=== PATIENT | male | born 1930 | race Caucasian/White ===

== ENCOUNTER 2020-09-16 07:45 | Observation (INO) | payer MEDICARE, BC ==
[2020-09-16] VITALS (16 sets, daily range): BP systolic 122–159; BP diastolic 65–97
[~2020-09-16] VITALS: Ht 175.3 cm; Wt 77.7 kg
--- NOTE | ~2020-09-16 | H ---
[address] [address] HISTORY AND PHYSICAL Name: JUNIOR Keegan KAT Room: [address] Wanda Ramirez#: [id number] Admission: 09/16/20 Attend Phys: Gunner Erickson MD, Discharge: 09/17/20 Date of : [birth year] Report #: [id number] THIS REPORT FOR: cc: Clive Andrews MD, Michael B. MD ~ [facility],Medical Records Staff Please refer to the History and Physical performed in the physician's office. By: 1457Medical Records Staff [facility] /NAHOMY
[~2020-09-16 07:45] MED LIST: 8 HOUR PAIN RE650 M1 PO; ASPIR 8181 MG PO; ASPIRIN EC81 M1; ASPIRIN EC81 M1 PO; CALCIUM 600 +1 EAC1; CALCIUM 600 +1 EAC1 PO; CARDIZEM CD300 MG; CYCLOBENZAPRINE5 MG PO; DILTIAZEM 24HR300 M2 PO; DILTIAZEM HCL90 MG PO; EFFIENT10 MG PO; ENALAPRIL-HCTZ1 EACH; ENALAPRIL-HCTZ1 EACH PO; FISH OIL 1,001000 M2 PO; FORTEO750 MCG/3 SUBQ; FOSAMAX 70 MG T70 MG PO; FUROSEMIDE 20 M20 MG PO; GABAPENTIN600 M1 PO; HYDROCODONE-APA1 TA1 PO; IMDUR 30 MG TAB30 M1 PO; KEFLEX500 MG PO; KLOR-CON 1010 MEQ PO; LANSOPRAZOLE30 MG PO; LEXAPRO 10 MG T10 M1 PO; MAGOX 400400 MG PO; NIACIN500 MG PO; NITROGLYCERIN0.4 MG; NITROGLYCERIN0.4 MG SUBLING; NORCO 5-325 TA1 EACH PO; PERCOCET 5-3251 EACH PO; PLAVIX 75 MG TA75 M1 PO; PLAVIX 75 MG TA75 MG; PREDNISOLONE 5 M5 M1 PO; PREDNISONE 5 MG5 M1 PO; PREDNISONE PO; PREVACID 30MG C30 M1 PO; PREVACID30 MG PO; SIMCOR 500-201 EACH; SIMCOR 500-201 EACH PO; TOPROL XL50 MG; TOPROL XL50 MG PO; TRAMADOL 50 MG50 MG PO; TYLENOL325 MG PO; VITAMIN D1000 UNI1 PO; ZETIA10 MG PO
[2020-09-16 08:36] LABS: HEMATOCRIT 36.6 % (42.0-52.0); HEMOGLOBIN 11.6 gm/dL (14.0-18.0); MCH 22.5 pg (26.0-34.0); MCHC 31.7 g/dL (28.0-37.0); MCV 70.9 fL (80.0-100.0); MPV 10.3 fl. (7.2-11.1); RBC 5.17 mil/uL (4.50-6.00); RDW-CV 16.8 % (10.5-14.5); WBC 10.1 thou/uL (4.0-11.0)
[2020-09-16 08:38] LABS: APTT 29.3 Seconds (25.0-31.3); INR 1.1; PROTIME 11.2 Seconds (9.20-11.50)
[2020-09-16 08:39] LABS: ALBUMIN 3.3 g/dL (3.4-5.0); ALKALINE PHOSPHATASE 57 U/L (46-116); ANION GAP 11 mmol/L (7-16); BUN 14 mg/dL (7-18); CALCIUM 8.7 mg/dL (8.5-10.1); CHLORIDE 103 mmol/L (98-107); CHOLESTEROL 137 mg/dL (<200); CO2 23 mmol/L (21-32); CREATININE 1.2 mg/dL (0.6-1.3); GLUCOSE 79 mg/dL (70-99); HDL CHOLESTEROL 38 mg/dL (>40); LDL CHOLESTEROL 85 mg/dL (<100); POTASSIUM 3.6 mmol/L (3.5-5.1); SERUM ASSESSMENT Clear; SGOT 17 U/L (15-37); SGPT 17 U/L (30-65); SODIUM 137 mmol/L (136-145); TC:HDL 3.6 Ratio (Not establshd); TOTAL BILIRUBIN 0.8 mg/dL (<0.1-1.0); TRIGLYCERIDE 72 mg/dL (<150); VLDL 14 mg/dL (<40)
[2020-09-16] MEDS ORDERED: NORVASC5 MG PO (12:36)
--- NOTE | 2020-09-16 12:40 | NUR ---
RECIEVED REPORT FROM CHANNING RN IN PACKAGING DESIGNER AT 1129- DX: HEART CATH- PT ARRIVED TO ROOM 210 VIA CART AT 1142, SLIDE TO BED- PT A&O X4, CHILKOOT WITH HEARIGN AIDES NOTED IN PLACE - CONT VA INCONT OF B/B- PT REPORTED TO HAVE URGENCY AT TIMES WITH STRESS INCONT NOTED- PT REPORTED TO HAVE HADN CATH ACCESS RIGHT GROIN WITH 2 STENTS REPORTED TO HAVE BEEN PLACED- RIGHT GROIN SITE C/D/I WITH NO HEMATOMA NOTED- BED REST IN PLACE INDICATED WITH RLE ISTRUCTIONS OF IMMOBILIZATION GIVEN- VSS WITH POST CATH VITALS WITH GROIN CHECKS IN PLACE INDICATED- ABD SOFT/ROUND/NON-TENDER, BS X4 QUADS- LAST BM REPORTED 09/15/20- IV NOTED TO LEFT FA INTACT WITH IVF INFUSSING PRESCRIBED-BLE AND UE EDEMA NOTED- NO OPEN SOARS OR WOUNDS NOTED- PT DENIES ANY C/O PAIN/DISCOMFORT AT THIS TIME- CALL LIGHT AND PERSONAL BELONGINGS WITH IN REACH- HOURLY ROUNDS IN PLACE R/T SAFETY/NEEDS- ALL NEEDS MET AT THIS TIME
--- NOTE | 2020-09-16 15:14 | EKG ---
[place] [address] ELECTROCARDIOGRAM REPORT Name: JUNIOR Keegan KAT Room: [address] M.R.#: [id number] Admission: 09/16/20 Attend Phys: Deion Rhodes Discharge: Date of : [birth year] Date of Service: 09/16/20 1129 Report #: [id number] THIS REPORT FOR: //name// [facility] Test Date: 2020-09-16 Test Time: 11:29:24 Pat Name: JUNIOR KAT Department: Room: [facility] Gender: M Start Up Specialist: : 1930 Requested By: Gunner Erickson Order Number: [id number] Reading MD: Clive Randall Measurements Intervals [place] Rate: 82 P: 61 [place]: 152 QRS: -55 QRSD: 137 T: 41 QT: 447 QTc: 522 Interpretive Statements Sinus rhythm RBBB and LAFB Compared to ECG 09/16/2020 09:08:24 Left anterior fascicular block now present ST (T wave) deviation now present Electronically Signed On 09-16-2020 15:14:15 SURFACE PLATE INSPECTOR by Clive Randall [email or web address] <ELECTRONICALLY SIGNED> By: Clive Randall MD, FACC 09/16/20 1514 1129 1129 Clive Randall MD, FACC /EPI
--- NOTE | 2020-09-16 15:14 | EKG ---
[place] [address] ELECTROCARDIOGRAM REPORT Name: JUNIOR Keegan KAT Room: [address] M.R.#: [id number] Admission: 09/16/20 Attend Phys: Deion Rhodes Discharge: Date of : [birth year] Date of Service: 09/16/20 0908 Report #: [id number] THIS REPORT FOR: //name// [facility] Test Date: 2020-09-16 Test Time: 09:08:24 Pat Name: JUNIOR KAT Department: Room: [facility] Gender: M Electrocardiograph Repairer: : 1930 Requested By: Gunner Erickson Order Number: [id number] Reading MD: Gunner Erickson Measurements Intervals [place] Rate: 75 P: 63 [place]: 148 QRS: -13 QRSD: 146 T: 43 QT: 445 QTc: 498 Interpretive Statements Sinus rhythm Probable left atrial enlargement Right bundle branch block Compared to ECG 12/26/2016 09:26:18 No significant changes Electronically Signed On 09-16-2020 15:13:59 GASTROENTEROLOGY TECHNICIAN by Gunner Erickson [email or web address] <ELECTRONICALLY SIGNED> By: Gunner Erickson MD, [facility] 09/16/20 1513 0908 0908 Gunner Erickson MD, [facility] /EPI
--- NOTE | 2020-09-16 15:29 | CARD ---
[address] [address] CARDIAC CATH REPORT Name: JUNIOR Keegan KAT Room: [address] Wanda Ramirez#: [id number] Admission: 09/16/20 Attend Phys: Gunner Erickson MD, Discharge: Date of : [birth year] Report #: [id number] THIS REPORT FOR: cc: Clive Andrews MD, Michael B. MD ~ Gunner Erickson MD [facility] APPROVED REPORT Study performed: 09/16/2020 09:27:11 Patient Details Patient Status: Out-Patient Room #: The patient is a 89 year-old male Event Personnel Gunner Erickson Retail Wireless Sales Consultant, Tequila Butler RN, Shreya Huggins RTR Monitor, Hector Hyman RTR Scrub Procedures Performed Art Access - R femoral artery Left Heart Cath Coronaries, Bypass Grafts BAO w/Atherectomy Single LAD Hemostasis w/ Angioseal Indication Unstable angina Risk Factors Hypercholesterolemia, Hypertension Previous Procedures/Diagnoses Previous CABGPrevious PCI Admission/Lab Medications/Medications given during procedure Lidocaine Subcut 14 ml, Oxygen Nasal cannula 2 l per min, 0.9% Sodium Chloride IV 75 ml per hr, Angiomax IV 10.5 ml, Angiomax Drip IV 24.9 ml per hr, Aspirin PO 162 mg, Plavix PO 600 mg Procedure Narrative The patient was brought electively to the Cardiac Catheterization Laboratory and was prepped and draped in a sterile manner. The right femoral was infiltrated with 2% Lidocaine subcutaneous anesthesia. A Ledbetter 6 FR sheath was inserted into the right femoral artery. Coronary angiography was performed using coronary diagnostic [address] [address] CARDIAC CATH REPORT Name: SHEYJUNIOR Allison Room: [address] Wanda Ramirez#: [id number] Admission: 09/16/20 Attend Phys: Gunner Erickson MD, Discharge: Date of : [birth year] Report #: [id number] catheters. The right coronary system was accessed and visualized with a Diagnostic 6 Fr JR 4 catheter. The left coronary system was accessed and visualized with a Diagnostic 6 Fr JL 4 catheter. The left ventricle was accessed and visualized with a Diagnostic 6 Fr Pigtail catheter. Left ventricular/Aortic Valve gradient assessed via catheter pullback. Left ventriculogram was performed in WISDOM projection. Pre-demployment femoral angiogram was performed . Closure device was deployed with a Fr Angioseal STS 6Fr. The patient tolerated the procedure well and there were no complications associated with the procedure. There was no hematoma. The SVG to the RCA was accessed and visualized with a Diagnostic 6 Fr JR 4 catheter. The GRIGSBY graft was accessed and visualized with a Diagnostic 6 Fr IM catheter. Intraoperative Conscious Sedation No sedation was given. Case start was 09:49 and case end was 10:54. Fluoro Time: 22.3 minutes Dose: DAP 587393 cGycm2 3094 mGy Contrast Type and Amount: Visipaque 430 ml [place] Artery Percent Stenosis 1. Patent saphenous vein graft to the distal right core artery with multiple areas of aneurysmal dilatation and 40% narrowing throughout the graft 2. Flush filling of a diminutive but patent GRIGSBY graft to the distal LAD Diagnostic Cath Left Main 0% narrowing LAD 75% ostial narrowing followed by 90% mid LAD stenosis with total occlusion of the LAD after takeoff of a prominent diagonal branch Circumflex Nondominant vessel with a widely patent mid to distal circumflex stent; 0% narrowing Right Coronary 100% proximal occlusion Left Ventriculography The left ventricle is normal in size with normal contractility. The left ventricular ejection fraction is estimated to be 65%. Left ventricular wall motion abnormalities are not present. There [place] [address] CARDIAC CATH REPORT Name: JUNIOR SHEY Keegan Room: [address] Wanda Ramirez#: [id number] Admission: 09/16/20 Attend Phys: Gunner Erickson MD, Discharge: Date of : [birth year] Report #: [id number] Hemodynamics The aortic pressure is 148/54 mmHg with a mean of 91 mmHg. The left ventricular pressure is 151/-5 mmHg with a mean of mmHg. The left ventricular end diastolic pressure is 19 mmHg. There was no gradient across the aortic valve upon pullback. PCI Technique Lesion Anticoagulation was achieved with Angiomax Drip. Patient was preloaded with Angiomax IV 10.5 ml. Percutaneous coronary intervention was performed on the mid left anterior descending artery segment. The lesion stenosis prior to intervention was 90% with DIMITRIOS 3 flow. A 6FR XB 3.0 100CM Guide Catheter was used to engage the left ostium. A IG: ProwaterFlex 180CM Interventional Guidewire was used to cross the lesion. BALLOON DILATION A Balloon catheter NC Trek RX 2.25x12 was inserted and inflated up to 14.00atm for 9seconds. Additional Inflation: 16.00atm for 6seconds. Additional Inflation: 12.00atm for 8seconds. A scoring balloon catheter Angiosculpt PTCA 2.0 x10mm was inserted and inflated up to 12 ARSENIO for 13 seconds, 14 ARSENIO for 17 seconds, 15 ARSENIO for 18 seconds, 10 ARSENIO for 14 seconds, and 12 ARSENIO for 14 seconds. STENT DEPLOYMENT A drug-eluting stent Olga RX Stent 2.0X22mm was inserted and inflated up to 10.00atm for 11seconds. Additional Inflation: 12.00atm for 9seconds. POST STENT DEPLOYMENT BALLOON DILATION A Balloon catheter NC Trek RX 2.25x12 was inserted and inflated up to 17.00atm for 11seconds. Additional Inflation: 18.00atm for 7seconds. Additional Inflation: 15.00atm for 8seconds. Final angiography reveals 10 % stenosis with DIMITRIOS 3 flow. PCI Technique Lesion 2 Percutaneous Coronary Intervention was performed on the proximal left anterior descending artery segment. Patient was preloaded with Angiomax IV 10.5 ml. The lesion stenosis prior to intervention was 75% with DIMITRIOS 3 flow. A 6FR XB 3.0 100CM Guide Catheter was used to engage the left ostium. A IG: ProwaterFlex 180CM Interventional Guidewire was used to cross the lesion. Stent Deployment A drug-eluting stent Olga RX Stent 2.25X8mm was [place] [address] CARDIAC CATH REPORT Name: JUNIOR Keegan KAT Room: [address] Wanda DelgadoTere#: [id number] Admission: 09/16/20 Attend Phys: Gunner Erickson MD, Discharge: Date of : [birth year] Report #: [id number] up to 12.00atm for 9seconds. Additional Inflation: 14.00atm for 6seconds. Additional Inflation: 15.00atm for 9seconds. Final angiography reveals 10 % stenosis with DIMITRIOS 3 flow. Conclusion 1. Severe multivessel coronary artery disease characterized by the following: A 75% ostial with 90% proximal LAD stenosis with total occlusion of the LAD after the takeoff of a prominent diagonal branch B nondominant circumflex with a widely patent mid to distal stent C total occlusion of the dominant right coronary artery proximally 2. Graft study characterized by the following: A patent saphenous vein graft to distal right coronary artery with multiple areas of aneurysmal dilatation and 40% narrowing throughout the graft B small but patent GRIGSBY graft filling the distal LAD 3. Normal left ventricular systolic function, estimated ejection fraction 65% 4 mild systemic systolic hypertension 5 successful atherotomy/atherectomy with deployment of a drug-eluting stent at the site of 90% mid LAD stenosis with 10% residual narrowing 6 successful PCI with deployment of a drug-eluting stent at site of 75% proximal LAD stenosis with 10% residual narrowing and DIMITRIOS-3 flow to the distal vessel Recommendations Daily ASA with Plavix for at least one year Cardiac Risk Reduction Program Medications Administered [address] [address] CARDIAC CATH REPORT Name: JUNIOR Keegan KAT Room: [address] DeionTereZuleykaTere#: [id number] Admission: 09/16/20 Attend Phys: Gunner Erickson MD, Discharge: Date of : [birth year] Report #: [id number] Aspirin (any) Clopidogrel Diagnostic Cath Approved by: Gunner Erickson MD Date/Time: 09/16/2020 15:25:11 <ELECTRONICALLY SIGNED> By: Gunner Erickson MD, FACC 09/16/20 1528 1528 1528Gunner Erickson MD, FACC /INF
[2020-09-17] VITALS: BP 127/49
[2020-09-17 04:34] VITALS: BP 90/48
[2020-09-17 04:58] LABS: HEMATOCRIT 31.5 % (42.0-52.0); HEMOGLOBIN 9.9 gm/dL (14.0-18.0); MCH 22.4 pg (26.0-34.0); MCHC 31.4 g/dL (28.0-37.0); MCV 71.4 fL (80.0-100.0); MPV 10.1 fl. (7.2-11.1); RBC 4.42 mil/uL (4.50-6.00); RDW-CV 16.8 % (10.5-14.5); WBC 12.6 thou/uL (4.0-11.0)
--- NOTE | 2020-09-17 05:18 | NUR ---
ASSUMED CARE OF PT AFTER REPORT AT 1930. PT A&OX4. VSS. PHYICAL ASSESSMENT COMPLETED AND CHARTED. PT ON RA. PT TRACING SR/ST/BBB ON TELE. PT COMPLAINED OF TINGLING SENSATION & PAIN ON HANDS-MED GIVEN PER OCT. FALL PRECAUTIONS IN PLACE. CALL LIGHT WITHIN REACH.
[2020-09-17 05:36] LABS: ALBUMIN 2.6 g/dL (3.4-5.0); CALCIUM 7.5 mg/dL (8.5-10.1); CREATININE 1.6 mg/dL (0.6-1.3); POTASSIUM 3.7 mmol/L (3.5-5.1); TOTAL BILIRUBIN 1.5 mg/dL (<0.1-1.0); TOTAL PROTEIN 5.5 g/dL (6.4-8.2); TROPONIN-I LEVEL 0.21 ng/mL (<0.06)
[2020-09-17 06:43] VITALS: BP 97/55
[2020-09-17 08:10] VITALS: BP 117/72
[2020-09-17 11:41] VITALS: BP 117/72
--- NOTE | 2020-09-17 11:57 | NUR ---
RECEIVED REPORT. ASSUMED CARE OF PT AROUND 0730. AM ASSESSMENT AND VITALS COMPLETED CHARTED. MEDS PER EMAR. RIGHT GROIN CDI, SOFT. DR IVAN IN, DISCHARGE ORDERS RECIEVED. PT GOING HOME ON 30-DAY EVENT MONITOR. IV AND BIBLIOGRAPHIC SERVICES SPECIALIST REMOVED. DISCHARGE GONE OVER WITH PT AND PT'S SON-IN-LAW. ALL BELONGINGS GATHERED AND SENT HOME WITH PT. PT LEFT UNIT IN WC WITH NURSING STAFF. PT LEFT HOSPITAL IN CAR WITH SON-IN-LAW.
--- NOTE | 2020-09-17 16:19 | EKG ---
[place] [address] ELECTROCARDIOGRAM REPORT Name: JUNIOR Keegan KAT Room: [address] M.R.#: [id number] Admission: 09/16/20 Attend Phys: Deion Rhodes Discharge: 09/17/20 Date of : [birth year] Date of Service: 09/17/20 0932 Report #: [id number] THIS REPORT FOR: //name// [facility] Test Date: 2020-09-17 Test Time: 09:32:34 Pat Name: JUNIOR KAT Department: Room: [facility] Gender: M Weed Cutter: THOMAS : 1930 Requested By: Gunner Erickson Order Number: [id number] Reading MD: Gunner Erickson Measurements Intervals [place] Rate: 81 P: 52 [place]: 151 QRS: -32 QRSD: 136 T: 33 QT: 429 QTc: 498 Interpretive Statements Sinus rhythm Probable left atrial enlargement Right bundle branch block Compared to ECG 09/16/2020 11:29:24 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
--- NOTE | 2020-09-18 16:38 | D ---
[address] [address] DISCHARGE SUMMARY Name: JUNIOR Keegan KAT Room: [address] Wanda Ramirez#: [id number] Admission: 09/16/20 Attend Phys: Gunner Erickson MD, Discharge: 09/17/20 Date of : [birth year] Report #: [id number] THIS REPORT FOR: cc: Clive Andrews MD, Michael B. MD ~ Gunner Erickson MD MERGED WITH [facility] DATE OF SERVICE: 09/17/2020 FINAL DISCHARGE DIAGNOSES: 1. Unstable angina. 2. Syncope. 3. Interstitial edema. 4. Coronary artery disease. 5. Status post percutaneous coronary intervention with atherectomy and stenting of the left anterior descending. 6. Hypertension. 7. Carotid stenosis. PROCEDURES: 09/16/2020 -- left heart catheterization, left ventriculography, selective coronary arteriography, graft study, and PCI to the LAD with atherectomy and stenting of the proximal-mid LAD. HISTORY OF PRESENT ILLNESS: The patient is a very pleasant 89-year-old male with complex coronary artery disease, status post remote coronary artery bypass grafting and subsequent PCIs to the LAD feeding the diagonal and the circumflex. He has had a patent GRIGSBY graft to the LAD and patent vein graft to the right coronary artery on prior catheterizations. He was admitted on this occasion because of a recurrent chest discomfort compatible with angina following an unstable course. He was also noted an increase in pedal and hand edema of late with some arthritic complaints in his hands. He has had 2 blackout spells with no clear provoking events. HOSPITAL COURSE: During the hospitalization, he underwent a cardiac catheterization, which revealed 90% mid LAD stenosis feeding the diagonal with 75% ostial proximal LAD narrowing. There was a small, but patent GRIGSBY graft to the LAD. The circumflex revealed a widely patent [id number] stent and the right coronary artery was totally occluded with a patent vein graft to the right coronary artery with multiple areas of aneurysmal dilatation and 40% narrowing without hemodynamically significant stenosis. Given this data, I elected to perform PCI, proceeding with atherectomy and stenting of the mid LAD with a good angiographic result and 10% residual narrowing with DIMITRIOS 3 flow of the distal vessel. Troponin pearl inconsequentially to 0.21. [place] [address] DISCHARGE SUMMARY Name: SHEYJUNIOR Allison Room: [address] Wanda Ramirez#: [id number] Admission: 09/16/20 Attend Phys: Gunner Erickson MD, Discharge: 09/17/20 Date of : [birth year] Report #: [id number] The patient did have pedal and lower extremity edema and he received IV Lasix during the hospitalization with creatinine increasing from 1.2 to 1.6 with a plan to continue outpatient diuresis in a diminished way. Additional lab on 09/17/2020 revealed a sodium of 135, potassium 3.7, BUN 17, creatinine 1.6, glucose 79. Hemoglobin 9.9, hematocrit 31.5, platelets 204,000. Troponin 0.21. Total cholesterol 137, LDL 85, triglycerides 72 mg percent. The patient ambulated in the hallways without difficulty and there was good hemostasis at the right femoral site of catheterization. DISCHARGE MEDICATIONS: He was discharged to home on the following medications: Isosorbide mononitrate 30 mg daily, aspirin 81 mg daily, Plavix 75 mg daily, Lexapro 10 mg daily, lansoprazole 30 mg b.i.d., prednisone 5 mg daily, p.r.n. sublingual nitroglycerin 0.4 mg as needed, Zetia 10 mg daily, gabapentin 600 mg t.i.d., tramadol 50 mg p.r.n., furosemide 40 mg p.o. every other day contingent on the amount of edema. Amlodipine was discontinued as his pressures were running low normal in the hospital. DISCHARGE INSTRUCTIONS: The patient is scheduled to return to see my nurse practitioner on 09/23/2020. In that context, the episodes of syncope, an event monitor has been applied. Lasix was administered and modified doses and he will be continued on dual antiplatelet therapy. Therefore, the patient is discharged to home in stable condition on the above-described medications on 09/17/2020. Followup is as scheduled above. The patient discharged from room #210 on 09/17/2020. <ELECTRONICALLY SIGNED> By: Gunner Erickson MD, FACC 09/18/20 1638 0929 [id number] Erickson MD, FAC /nt
== END 2020-09-17 12:00 | disposition home or self-care (01) ==
LOC: M.CL 07:45 → M.TBA-CV 11:16 → M.2W 11:16
PROVIDERS: ADMIT Internal Medicine; ATTEND Internal Medicine
DX: I25.110 Atherosclerotic heart disease of native coronary artery with unstable angina pectoris (principal); I10 Essential (primary) hypertension; E78.5 Hyperlipidemia, unspecified; R60.9 Edema, unspecified; I65.9 Occlusion and stenosis of unspecified precerebral artery; Z79.899 Other long term (current) drug therapy; Z20.828 Contact with and (suspected) exposure to other viral communicable diseases